=== PATIENT | male | born 1955 | race Caucasian/White ===

== ENCOUNTER 2016-08-29 15:02 | Emergency (ER) | payer SELFPAY ==
[~2016-08-29] VITALS: Ht 182.9 cm; Wt 60.0 kg
[2016-08-29] VITALS (7 sets, daily range): BP systolic 108–121; BP diastolic 59–75; PULSE 60–68; RESP 14–19; TEMP 98; O2SAT 94–97
[2016-08-29] MEDS ORDERED: SODIUM CHLORIDE 0.9% FLUSH 5 ML FLUSH IVF PRN (15:15)
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
--- NOTE | 2016-08-29 15:41 | RADRPT ---
EXAM DATE/TIME: 08/29/2016 15:21 [facility] COMPARISON: No previous studies available for comparison. INDICATIONS : Left flank pain. MEDICAL HISTORY : None. SURGICAL HISTORY : None. ENCOUNTER: Initial ACUITY: 1 day PAIN SCORE: 6/10 LOCATION: Left flank Chest and abdomen FINDINGS: A single view of the chest demonstrates the lungs to be symmetrically aerated without evidence of mas s, infiltrate or effusion. The cardiomediastinal contours are unremarkable. Osseous structures are intact. CONCLUSION: No acute disease. Seth Morales MD on August 29, 2016 at 15:39 Board Certified Radiologist. This report was verified electronically.
[2016-08-29 15:50] LABS: AUTOMATED NEUTROPHIL # 4.8 TH/MM3 (1.8-7.7); BASOPHIL # 0.1 TH/MM3 (0-0.2); BASOPHIL % 0.8 % (0.0-2.0); EOSINOPHIL # 0.1 TH/MM3 (0-0.4); EOSINOPHIL % 1.3 % (0.0-4.0); HEMATOCRIT 39.6 % (39.0-51.0); HEMO FLAGS DIFF FINAL; LYMPH % 27.9 % (9.0-44.0); LYMPHOCYTE # 2.1 TH/MM3 (1.0-4.8); MEAN CELL VOLUME 90.1 FL (80.0-100.0); MEAN CORPUSCULAR HEMOGLOBIN 30.8 PG (27.0-34.0); MEAN CORPUSCULAR HGB CONC 34.2 % (32.0-36.0); MONO % 6.8 % (0.0-8.0); NEUT % 63.2 % (16.0-70.0); PLATELET COUNT 205 TH/MM3 (150-450); RED CELL DISTRIBUTION WIDTH 12.8 % (11.6-17.2); WHITE BLOOD COUNT 7.6 TH/MM3 (4.0-11.0)
[2016-08-29 16:50] LABS: ANION GAP 10 MEQ/L (5-15); AST (GOT) 7 U/L (15-37); BLOOD UREA NITROGEN 23 MG/DL (7-18); CHLORIDE 104 MEQ/L (98-107); GLOMERULAR FILTRATION RATE 66 ML/MIN (>89); POTASSIUM 3.7 MEQ/L (3.5-5.1); SODIUM (NA) 141 MEQ/L (136-145)
[2016-08-29 16:55] LABS: ALKALINE PHOSPHATASE 69 U/L (45-117); ALT (GPT) 13 U/L (12-78); TOTAL BILIRUBIN ADULT 0.9 MG/DL (0.2-1.0)
[2016-08-29 16:58] LABS: CREATINE KINASE 86 U/L (39-308)
[2016-08-29] MEDS ORDERED: IOHEXOL 350 MG/ML 10 ML VIAL (for RAD DIAG) IV ONE (17:49)
[2016-08-29] MEDS ORDERED: KETOROLAC TROMETHAMINE 30 MG/ML (IVP) VIAL IV PUSH ONE (18:00)
--- NOTE | 2016-08-29 18:00 | RADRPT ---
EXAM DATE/TIME: 08/29/2016 17:21 [facility] COMPARISON: No previous studies available for comparison. INDICATIONS : Dizziness and diaphoresis. IV CONTRAST: 75 cc Omnipaque 350 (iohexol) IV RADIATION DOSE: 19.47 CTDIvol (mGy) MEDICAL HISTORY : Hepatitis C. SURGICAL HISTORY : None. ENCOUNTER: Initial ACUITY: 1 day PAIN SCALE: 5/10 LOCATION: chest TECHNIQUE: Volumetric scanning of the chest was performed using a pulmonary embolism protocol MIP images were re constructed. Using automated exposure control and adjustment of the mA and/or kV according to patien t size, radiation dose was kept as low as reasonably achievable to obtain optimal diagnostic quality images. FINDINGS: PULMONARY ARTERIES: No filling defects are seen in the pulmonary arteries through the segmental level. LUNGS: There is no consolidation or pneumothorax . There is a 7 mm noncalcified left apical nodule which is indeterminate. Followup CT of the chest in 3-6 months is recommended to confirm stability. Biapical s carring is noted. Subpleural bleb formation within the right posterior medial lung. PLEURAE: There is no pleural thickening or pleural effusion. MEDIASTINUM: There is good visualization of the great vessels of the middle mediastinum. No evidence of mediastin al or hilar adenopathy/mass. MUSCULOSKELETAL: Within normal limits for patient age. MISCELLANEOUS: The visualized upper abdominal organs demonstrate no acute abnormality. CONCLUSION: 1. No evidence of pulmonary embolism. 2. 7 mm noncalcified indeterminate left apical nodule. Followup CT of the chest in 3-6 months is terrance mmended. 3. Biapical scarring is noted. 4. Subpleural bleb formation within the right posterior medial lung. Seth Morales MD on August 29, 2016 at 17:53 Board Certified Radiologist. This report was verified electronically.
--- NOTE | 2016-08-29 21:31 | EKG ---
Date Performed: 08/29/2016 Time Performed: 15:09:52 PTAGE: 60 years EKG: Sinus rhythm NORMAL ECG NO PREVIOUS TRACING DOCTOR: Corey Ballesteros Interpretating Date/Time 08/29/2016 21:29:49
== END 2016-08-29 19:23 | disposition home or self-care (01) ==
LOC: NEPA 15:02
DX: R55 Syncope and collapse (principal); M54.9 Dorsalgia, unspecified; R10.9 Unspecified abdominal pain; F17.210 Nicotine dependence, cigarettes, uncomplicated
CPT/HCPCS: 71010; 71275; 80053; 82550; 83735; 83880; 84484; 85025; 85379; 93005; J1885; Q9967; 96374